=== PATIENT | male | born 1950 | race Hispanic/Latino ===

== ENCOUNTER → 2019-05-03 | Outpatient (CLI) | payer OTHER ==
[~2019-05-03] MED LIST: CLOT15CR62 TP; DUTA1CPM PO; FEXO-235 PO; GLIP10TA9 PO; LEVO5DRO6 OU; METAMUCIL PO; METF500T20 PO; OMEP-50 PO; SULI150T PO
== END | disposition home or self-care (01) ==
LOC: RAH 14:26
PROVIDERS: ATTEND Internal Medicine
DX: Z13.6 Encounter for screening for cardiovascular disorders (principal)
CPT/HCPCS: 75571